=== PATIENT | male | born 1965 | race Caucasian/White ===

== ENCOUNTER 2017-01-13 17:51 | Emergency (ER) | payer OTHER ==
[2017-01-13 17:56] VITALS: BP 142/80; PULSE 80; RESP 20; TEMP 98.1
--- NOTE | 2017-01-13 18:46 | ED ---
Abdominal Pain HPI - General Chief Complaint: Abdominal Pain Stated Complaint: abdominal pain Time Seen by Provider: 01/13/17 18:29 Source: patient, RN notes reviewed Mode of arrival: ambulatory Limitations: no limitations - History of Present Illness Initial Comments: 51-year-old male presents to the emergency room chief complaint of lower abdominal pain. Patient states he had this crampy type pain that lasted for about an hour around his umbilicus. Patient states it is crampy he got up he paced around and eventually the pain just went away. Patient states he is pain- free for about an hour and happened again. Patient states he had similar-like pain after eating beans about 10 years ago he hasn't had it since. Patient states he had no nausea or vomiting with this. Patient denies any changes in urination any hematuria. Patient denies any fever or chills. Patient denies any cough cold runny nose. Patient states there is no chest pain there is no shortness of breath. Patient states when the pain was intense he felt a little bit of anxiety he had a little bit of numbness to bilateral fingertips and the little. Normal numbness as well. Patient states he's been pain-free since. Patient states he feels back to normal. Patient states he hasn't had any other symptoms.Patient denies any recent fever, chills, shortness of breath, chest pain, back pain, abdominal pain, nausea vomiting, numbness or tingling, dysuria or hematuria, constipation or diarrhea, headaches or visual changes, or any other current symptoms. - Related Data Allergies Allergy/AdvReac Type Severity Reaction Status Date / Time No Known Allergies Allergy Verified 01/13/17 17:56 Review of Systems ROS Statement: Those systems with pertinent positive or pertinent negative responses have been documented in the HPI. ROS Other: All systems not noted in ROS Statement are negative. Past Medical History Past Medical History: Cancer, Thyroid Disorder Additional Past Medical History / Comment(s): thyroid cancer History of Any Multi-Drug Resistant Organisms: None Reported Past Surgical History: Orthopedic Surgery Additional Past Surgical History / Comment(s): thyroidectomy Past Psychological History: No Psychological Hx Reported Smoking Status: Never smoker Past Alcohol Use History: Occasional Past Drug Use History: None Reported General Exam Limitations: no limitations General appearance: alert, in no apparent distress Head exam: Present: atraumatic, normocephalic, normal inspection ENT exam: Present: normal exam, mucous membranes moist Neck exam: Present: normal inspection. Absent: tenderness, meningismus, lymphadenopathy Respiratory exam: Present: normal lung sounds bilaterally. Absent: respiratory distress, wheezes, rales, rhonchi, stridor Cardiovascular Exam: Present: regular rate, normal rhythm, normal heart sounds. Absent: systolic murmur, diastolic murmur, rubs, gallop, clicks GI/Abdominal exam: Present: soft, normal bowel sounds. Absent: distended, tenderness, guarding, rebound, rigid Neurological exam: Present: alert, oriented X3 Psychiatric exam: Present: normal affect, normal mood Skin exam: Present: warm, dry, intact, normal color. Absent: rash Course Vital Signs 01/13/17 17:54 Temperature 98.1 F Pulse Rate 80 Respiratory 20 Rate Blood Pressure 142/80 O2 Sat by Pulse 98 Oximetry Medical Decision Making - Medical Decision Making 51-year-old male presents for lower abdominal pain patient is currently pain free. We discussed blood work and imaging to further evaluate the patient's pain. He states he is pain-free. Family was concerned that he was having a heart attack and/or stroke. We discussed his symptoms do not coincide with these due to the fact it was pain around the umbilicus. As well as the patient did not have any strokelike symptoms. This time we did. With his doctor. They were offered additional workup and they stated they would like to go. This time they will be discharged. Disposition Clinical Impression: Abdominal pain Disposition: HOME SELF-CARE Condition: Stable Instructions: Abdominal Pain (ED) Additional Instructions: Please follow up with family doctor if symptoms have not improved over the next two days. Please return to the emergency room if your symptoms increase or worsen or for any other concerns. Referrals: Starla Cunha MD [STAFF PHYSICIAN] - 1-2 days Time of Disposition: 18:45
== END 2017-01-13 19:02 | disposition home or self-care (01) ==
LOC: EC 17:51
DX: R10.33 Periumbilical pain (principal)
CPT/HCPCS: 99283